=== PATIENT | male | born 1965 | race Caucasian/White ===

== ENCOUNTER 2017-07-20 22:14 | Outpatient (CLI) | END 2017-07-20 22:15 | disposition home or self-care (01) | LOC: AMBL 22:14 | PROVIDERS: ATTEND Internal Medicine Geriatric Medicine | DX: M79.632 Pain in left forearm (principal); M79.631 Pain in right forearm; M79.671 Pain in right foot; M79.661 Pain in right lower leg; M25.512 Pain in left shoulder; M79.89 Other specified soft tissue disorders; V54.5XXA Driver of pick-up truck or van injured in collision with heavy transport vehicle or bus in traffic accident, initial encounter ==